=== PATIENT | female | born 1940 | race Caucasian/White ===

== ENCOUNTER 2016-05-26 14:24 | Emergency (ER) | payer MEDICARE, OTHER ==
[~2016-05-26 14:24] MED LIST: ALDACTONE25 MG PO; ASPIR-LOW81 MG PO; ASPIRIN EC81 MG PO; COREG 12.5MG12.5 MG PO; DULCOLAX10 MG PR; LASIX20 MG PO; LEVAQUIN500 MG PO; LEVEMIR100 UNIT/1 SQ; LEXAPRO TAB 1010 MG PO; LISINOPRIL5 MG PO; LORTAB 5-325 M1 EACH PO; MILK OF MAGNESI30 ML PO; MIRALAX PACK 171 PKT PO; MOBIC7.5 MG PO; NEURONTIN 100100 MG PO; NOVOLIN R100 UNIT/1 SQ; PRAVACHOL20 MG PO; PROMOD 946 ML BT1 EA PO; RESTORIL7.5 MG PO; SENOKOT-S TABL1 EACH PO; TYLENOL 500 MG500 MG PO; VITAMIN B-1000 MCG/M IM; ZOFRAN4 MG PO
[2016-05-26 15:54] LABS: HEMOGLOBIN 8.9 gm/dl (12.3-15.3); RED BLOOD COUNT 3.14 M/UL (4.00-5.10); WHITE BLOOD COUNT 13.3 K/UL (4.5-11.0)
[2016-05-26 19:09] LABS: BUN/CREATININE RATIO 41 (0-10)
== END 2016-05-26 19:28 ==
LOC: ER1 14:24
PROVIDERS: Emergency Medicine
DX: E11.628 Type 2 diabetes mellitus with other skin complications (principal); L03.311 Cellulitis of abdominal wall; E11.65 Type 2 diabetes mellitus with hyperglycemia; E87.5 Hyperkalemia; D64.9 Anemia, unspecified; E87.1 Hypo-osmolality and hyponatremia; Z88.0 Allergy status to penicillin; Z88.1 Allergy status to other antibiotic agents
CPT/HCPCS: 36415; 80048; 80053; 81001; 82550; 82553; 82962; 83605; 83690; 83874; 84484; 85025; 87040; 87077; 87186; 93005; 94664; 96361; 96374; 96375; 99285; J1335; J1815; J3370; J7050

== ENCOUNTER 2016-06-12 12:45 | Emergency (ER) | payer MEDICARE, OTHER | END 2016-06-12 18:45 | disposition home or self-care (01) | LOC: ER1 12:45 | DX: L03.311 Cellulitis of abdominal wall (principal); F03.90 Unspecified dementia, unspecified severity, without behavioral disturbance, psychotic disturbance, mood disturbance, and anxiety; Z88.0 Allergy status to penicillin; Z88.8 Allergy status to other drugs, medicaments and biological substances | CPT/HCPCS: 99283 ==

== ENCOUNTER → 2016-07-03 | Outpatient (CLI) | payer MEDICARE, OTHER | LOC: LAB 11:47 | DX: S31.109A Unspecified open wound of abdominal wall, unspecified quadrant without penetration into peritoneal cavity, initial encounter (principal) | CPT/HCPCS: 87070; 87077; 87186; 87205 ==